=== PATIENT | female | born 1990 | race Caucasian/White ===

== ENCOUNTER → 2024-05-05 16:49 | Outpatient (REF) | payer OTHER, SELFPAY | LOC: RAD 16:49 | PROVIDERS: ATTENDING PHYSICIAN Nurse Practitioner Family; FAMILY PHYSICIAN Family Medicine | DX: Z34.91 Encounter for supervision of normal pregnancy, unspecified, first trimester (principal) | CPT/HCPCS: 76801 ==

== ENCOUNTER → 2024-05-22 16:48 | Outpatient (REF) | payer OTHER, SELFPAY | LOC: PNTC 16:48 | PROVIDERS: ATTENDING PHYSICIAN Obstetrics & Gynecology | DX: Z36.0 Encounter for antenatal screening for chromosomal anomalies (principal); Z36.82 Encounter for antenatal screening for nuchal translucency | CPT/HCPCS: 76801; 76813 ==

== ENCOUNTER → 2024-07-05 16:31 | Outpatient (REF) | payer OTHER, SELFPAY | LOC: PNTC 16:31 | PROVIDERS: ATTENDING PHYSICIAN Obstetrics & Gynecology | DX: Z34.82 Encounter for supervision of other normal pregnancy, second trimester (principal) | CPT/HCPCS: 76805 ==

== ENCOUNTER → 2024-08-28 10:54 | Outpatient (REF) | payer OTHER, SELFPAY | LOC: PNTC 10:54 | PROVIDERS: ATTENDING PHYSICIAN Obstetrics & Gynecology | DX: O98.519 Other viral diseases complicating pregnancy, unspecified trimester (principal) | CPT/HCPCS: 76816 ==

== ENCOUNTER → 2024-09-28 12:58 | Outpatient (REF) | payer OTHER, SELFPAY | LOC: PNTC 12:58 | PROVIDERS: ATTENDING PHYSICIAN Obstetrics & Gynecology | DX: O98.519 Other viral diseases complicating pregnancy, unspecified trimester (principal); U07.1 COVID-19 | CPT/HCPCS: 76816 ==

== ENCOUNTER → 2024-10-30 17:32 | Outpatient (REF) | payer OTHER, SELFPAY | LOC: PNTC 17:32 | PROVIDERS: ATTENDING PHYSICIAN Obstetrics & Gynecology | DX: O98.519 Other viral diseases complicating pregnancy, unspecified trimester (principal); U07.1 COVID-19 | CPT/HCPCS: 76816 ==

== ENCOUNTER 2024-11-28 19:39 | Inpatient (IN) | payer OTHER, SELFPAY ==
[2024-11-28 19:45] VITALS: BMI 29.2
[2024-11-28] MEDS: CYTOTEC 25 MICROGRAM VAG (20:23)
[2024-11-28 20:45] LABS: % Basophils 0.4 % (0-2); % Eosinophils 2.3 % (0-6); % Immature Granulocytes 0.4 % (0-0.5); % Lymphocytes 22.2 % (20.5-51.1); % Monocytes 8.6 % (1.7-9.3); % Neutrophils 66.1 % (42.2-75.2); Absolute Basophils 0.1 10^3/uL (0-0.2); Absolute Eosinophils 0.3 10^3/uL (0-0.7); Absolute Immature Granulocytes 0.1 10^3/uL (0-0.05); Absolute Monocytes 1.2 10^3/uL (0.1-0.6); Hematocrit 33.7 % (37.0-47.0); Hemoglobin 11.9 g/dL (12.0-16.0); Mean Corp Hgb Conc. 35.3 g/dL (33.0-37.0); Mean Corpuscular Hgb 30.9 pg (27.0-31.0); Mean Corpuscular Volume 87.5 fL (81.0-99.0); Mean Platelet Volume 11.9 fL (7.4-10.4); Nucleated Red Blood Cells % 0 %; Platelet Count 206 10^3/uL (130-400); Red Blood Cell Count 3.85 10^6/uL (4.20-5.40); Red Cell Dist. Width 12.4 % (11.5-14.5); White Blood Cell Count 13.6 10^3/uL (4.8-10.8)
[2024-11-28] MEDS: LR 1000 IV (23:46)
[2024-11-29] MEDS: TUMS CHEWABLE TABLET 400 MG PO ×2 (01:44→09:57)
[2024-11-29] MEDS: STADOL 1 MG IV (01:45)
[2024-11-29] MEDS: CYTOTEC PO ×5 (02:00→18:00)
[2024-11-29] MEDS: CYTOTEC 50 MICROGRAM PO (02:50)
[2024-11-29] MEDS: LR 1000 IV ×2 (03:45→11:35)
[2024-11-29] MEDS: SUBLIMAZE 100 MCG EPIDURAL (04:37)
[2024-11-29] MEDS: FENTANYL/BUPIVACAINE 100 EPIDURAL ×2 (04:38→11:35)
[2024-11-29] MEDS: PITOCIN 30 UNITS/NSS 500 ML IV (08:04)
[2024-11-29] MEDS: ZOFRAN 4 MG IV (13:34)
[2024-11-29] MEDS: MOTRIN 600 MG PO (19:24)
[2024-11-30] MEDS: TYLENOL 650 MG PO ×3 (03:09→16:28)
[2024-11-30] MEDS: MOTRIN 600 MG PO ×3 (03:09→16:28)
[2024-11-30] MEDS: SENOKOT-S 1 TABLET PO (08:24)
[2024-11-30] MEDS: FEOSOL 325 MG PO (08:24)
[2024-11-30] MEDS: PRENATAL PLUS 1 TABLET PO (08:24)
[2024-12-01] MEDS: TYLENOL 650 MG PO ×2 (04:23→11:20)
[2024-12-01] MEDS: PRENATAL PLUS 1 TABLET PO (10:41)
[2024-12-01] MEDS: FEOSOL 325 MG PO (10:41)
[2024-12-01] MEDS: MOTRIN 600 MG PO (11:20)
[2024-12-01 11:57] LABS: Syphilis/T. pallidum Ab Reflex Negative (Negative)
== END 2024-12-01 13:15 | disposition home or self-care (01) | DRG 806 ==
LOC: LDRP 19:39
PROVIDERS: Obstetrics & Gynecology; ADMITTING PHYSICIAN Obstetrics & Gynecology; FAMILY PHYSICIAN Family Medicine
PROC: 3E0P7VZ Introduction of Hormone into Female Reproductive, Via Natural or Artificial Opening (ICD-10-PCS; 2024-11-28)
PROC: 0UQGXZZ Repair Vagina, External Approach (ICD-10-PCS; 2024-11-29)
PROC: 3E033VJ Introduction of Other Hormone into Peripheral Vein, Percutaneous Approach (ICD-10-PCS; 2024-11-29)
PROC: 10E0XZZ Delivery of Products of Conception, External Approach (ICD-10-PCS; 2024-11-29)
DX: O48.0 Post-term pregnancy (principal); O71.4 Obstetric high vaginal laceration alone; Z37.0 Single live birth; Z3A.40 40 weeks gestation of pregnancy; O76 Abnormality in fetal heart rate and rhythm complicating labor and delivery; O69.81X0 Labor and delivery complicated by cord around neck, without compression, not applicable or unspecified; O90.81 Anemia of the puerperium; D64.9 Anemia, unspecified; Z91.013 Allergy to seafood; Z63.4 Disappearance and death of family member; Z85.820 Personal history of malignant melanoma of skin; Z80.3 Family history of malignant neoplasm of breast; Z80.8 Family history of malignant neoplasm of other organs or systems
CPT/HCPCS: 36415; 85014; 85018; 85025; 86780; 86850; 86900; 86901

== ENCOUNTER → 2025-05-30 11:07 | Outpatient (REF) | payer OTHER, SELFPAY | LOC: HWRAD 11:07 | PROVIDERS: ATTENDING PHYSICIAN Nurse Practitioner Family; FAMILY PHYSICIAN Family Medicine | DX: E04.9 Nontoxic goiter, unspecified (principal) | CPT/HCPCS: 76536 ==